=== PATIENT | male | born 1965 | race Caucasian/White ===

== ENCOUNTER 2022-08-04 12:08 | Day surgery (SDC) | payer BC ==
[2022-08-04] MEDS ORDERED: Ringers Lactate 1,000 ML IV ONE (12:37)
[2022-08-04 13:15] LABS: Potassium 4.2 mmol/L (3.5-5.1)
[2022-08-04] MEDS: CEFAZOLIN SODIUM 2 GM/VIAL ONE ×2 (15:33→16:56)
[2022-08-04] MEDS ORDERED: BUPIVACAINE 0.25% PF 10 ML VIAL ONE (16:24)
[2022-08-04] MEDS ORDERED: propofoL 200 MG/20 ML VIAL IV ONE (16:35)
[2022-08-04] MEDS ORDERED: MIDAZOLAM HCL 2 MG/2 ML INJ ONE (16:35)
[2022-08-04] MEDS ORDERED: FENTANYL CITR 100 MCG/2 ML ONE (16:35)
--- NOTE | 2022-08-04 17:32 | P.OP ---
Preoperative diagnosis: RIGHT epidermal hip cyst, Central back infected cyst Postoperative diagnosis: RIGHT epidermal hip cyst, Central back infected cyst Primary procedure: Excisional Debridment of Central back infected cyst Secondary procedure: Excision of RIGHT hip epidermal cyst Anesthesia: GETA + Local Estimated blood loss: <5cc Specimen: cultures, debridement material Findings: ~3cm sebaceous cyst of hip, ~ 2x2 cyst of central back to fascia Complications: None Transferred to: Recovery Room Condition: Good
[2022-08-04 17:46] VITALS: O2SAT 100
[2022-08-04] MEDS ORDERED: KETOROLAC 30 MG/ML INJ ONE (17:56)
[2022-08-04] MEDS ORDERED: HYDROMORPHONE HCL 1 MG/ML INJ ONE (18:09)
[2022-08-04 18:26] VITALS: BP 107/68; TEMP 96.7
[2022-08-04] MEDS ORDERED: HYDROCODONE/APAP 5/325 MG TAB PO ONE (18:34)
[2022-08-04] MEDS ORDERED: HYDROCODONE/APAP 5/325 MG TAB ONE (18:40)
--- NOTE | 2022-08-05 00:56 | OP ---
Date of Procedure: 08/04/2022 Surgeon: Eris eNwby MD, Preoperative Diagnoses: 1.Right epidermal hip cyst. 2.Central back infected sebaceous cyst. Postoperative Diagnoses: 1.Right epidermal hip cyst. 2.Central back infected sebaceous cyst. Procedure Performed: 1.Excisional debridement of right central back infected cyst. 2.Excision of right hip epidermal inclusion cyst. Anesthesia: General endotracheal with 0.25% Marcaine. Estimated Blood Loss: Less than 5 cc. Specimen: 1.Cultures for aerobic and anaerobic speciation. 2.Debridement of tissue from both cysts was sent for pathologic examination. Findings: 1.Approximately 3 cm sebaceous cyst of the right hip posterior hip area. 2.A 2 cm x 2 cm cyst of the central back extending to the fascia. Complications: None. Disposition: Patient transferred to the recovery room in good condition. Procedure In Detail: After informed consent was obtained, patient was brought to the operating room, prepped and draped in the usual sterile fashion after adequate anesthesia was achieved. I injected the two areas of concern as described above with 0.25% Marcaine. I then made a circular incision milton und the central back infected sebaceous cyst. Abscess material was encountered immediately. This wa s cultured for both aerobic and anaerobic speciation. I then used a combination of sharp dissection with electrocautery to remove all affected tissue. This was sent off for pathologic examination as d ebridement tissue. I then achieved hemostasis with electrocautery in the area and the wound was then packed with Vashe-soaked packing and a sterile dressing placed over top. I then turned my attention to the right posterior hip area. I made a similar incision of a linear type in this orientation kat n to subcutaneous tissues. I then circumferentially dissected an epidermal inclusion cyst and remove d it and sent off for pathologic examination including the sebaceous material. I then achieved hemos tasis with electrocautery. I then irrigated the area and closed the deep dermal plane using 3-0 Vicr yl suture and the skin was closed with a 4-0 Monocryl in a running fashion. Dermabond was placed ove r top. The patient tolerated the procedure well without evidence of complication and transferred to PACU in good condition. All counts were correct at the end of the case. CAR/CHIOMA Voice ID: [id number] Report ID: [id number]
--- NOTE | 2022-08-05 11:17 | EKG ---
Test Date: 2022-08-04 Test Time: 12:27:45 Sql Report Writer: GERMÁN MEASUREMENT RESULTS: Intervals: Rate: 55 TN: 162 QRSD: 98 QT: 424 QTc: 405 [place]: P: 66 TN: 162 QRS: 68 T: 61 INTERPRETIVE STATEMENTS: Sinus bradycardia Otherwise normal ECG No previous ECG available for comparison Electronically Signed On 08-05-22 11:15:21 HIMS MANAGER by Brady Bernardo
== END 2022-08-04 18:58 | disposition home or self-care (01) ==
LOC: OR 12:08
PROVIDERS: ATTEND Surgery
PROC: 0JBL0ZZ Excision of Right Upper Leg Subcutaneous Tissue and Fascia, Open Approach (ICD-10-PCS; 2022-08-04)
PROC: 0JB70ZZ Excision of Back Subcutaneous Tissue and Fascia, Open Approach (ICD-10-PCS; principal; 2022-08-04 13:00)
DX: L72.0 Epidermal cyst (principal); L72.3 Sebaceous cyst
CPT/HCPCS: 11402; 11403; 93005; 87070; 80048; 36415; 87205; 88302; 87075; J2704; J2250; J3010; J1170; J7120; 88304